=== PATIENT | male | born 1945 | race Caucasian/White ===

== ENCOUNTER 2018-07-25 16:21 | Emergency (ER) | payer OTHER ==
[2018-07-25] MEDS ORDERED: IPRATROPIUM/ALBUTEROL 3 ML NEB INH STA (16:31)
--- NOTE | 2018-07-25 16:33 | ED Physician Documentation ---
History of Present Illness - Stated complaint Stated Complaint: COUGH - History obtained from History obtained from: Patient, Family - History of Present Illness Timing: How many days ago (3) Pain level max: 5 Pain level now: 4 - Additonal information Additional information: Patient is a 73-year-old male who presents to the emergency department with coughing for the past 3 days. Starting yesterday and started to develop chest pain but only with coughing. Described as sharp and stabbing. Lasts for 1-2 seconds at a time. States that he is concerned that he is developing bronchitis. States he has had "bronchitis" for the past 3 years. Has never used an inhaler. States that he had subjective fevers at home. The pain is better with rest and worse with coughing. Review of Systems Ten Systems: 10 systems reviewed and negative Constitutional: reports: Fever. denies: Chills Ears: denies: Ear pain Nose: reports: Rhinorrhea / runny nose, Congestion Throat: denies: Sore throat Cardiac: denies: Palpitations Respiratory: reports: Dyspnea, Cough, Wheezing GI: denies: Abdominal Pain, Nausea, Vomiting, Diarrhea Skin: denies: Rash Musculoskeletal: denies: Neck pain, Back pain Neurologic: denies: Headache PD PAST MEDICAL HISTORY - Past Medical History Past Medical History: Yes Cardiovascular: Hypertension GI: GERD Musculoskeletal: Gout - Present Medications Home Medications: Ambulatory Orders Medication Instructions Recorded Confirmed Albuterol Sulf [Ventolin Hfa 1 - 2 puffs INH Q4HR PRN #1 inhaler 07/25/18 Inhaler] Benzonatate [Tessalon Perle] 100 - 200 mg PO TID PRN #30 capsule 07/25/18 predniSONE [Deltasone] 10 mg PO [id number] #42 tab 07/25/18 - Allergies Allergies/Adverse Reactions: Allergies Allergy/AdvReac Type Severity Reaction Status Date / Time No Known Drug Allergies Allergy Verified 07/25/18 16:35 - Living Situation Living Situation: reports: With family Living Arrangement: reports: At home - Social History Does the pt smoke?: No Does the pt have substance abuse?: No - Family History Family history: reports: Non contributory PD ED PE NORMAL - Vitals Vital signs reviewed: Yes - General General: Alert and oriented X 3, No acute distress - HEENT HEENT: Moist mucous membranes - Neck Neck: Supple, no meningeal sign - Cardiac Cardiac: RRR - Respiratory Respiratory: No respiratory distress, Other (wheezing B) - Abdomen Abdomen: Soft, Non tender, Non distended - Derm Derm: Warm and dry - Extremities Extremities: No edema - Neuro Neuro: Alert and oriented X 3 - Psych Psych: Normal mood, Normal affect Results - Vitals Vitals: Vital Signs - 24 hr 07/25/18 07/25/18 07/25/18 16:30 17:00 18:55 Temperature 36.7 C Heart Rate 103 H 94 111 H Respiratory 18 112 H 18 Rate Blood Pressure 162/100 H O2 Saturation 98 07/25/18 19:11 Temperature 37.8 C H Heart Rate 110 H Respiratory 18 Rate Blood Pressure 169/92 H O2 Saturation 96 Oxygen O2 Source Room air - EKG (time done) 1634 Rate: Rate (enter#) (99) Rhythm: NSR [place]: Anterior hemiblock (LAFB) Intervals: Normal VT QRS: Normal Ischemia: Normal ST segments - Rads (name of study) cxr Radiology: Prelim report reviewed, EMP read contemporaneously, See rad report ( No acute abnormality) PD MEDICAL DECISION MAKING - ED course Complexity details: reviewed results, re-evaluated patient, considered differential, d/w patient, d/w family ED course: Patient is a 73-year-old male who presents to the emergency department what appears to be a viral upper respiratory infection. He is very well-appearing, nontoxic. No acute findings on chest x-ray. Feels better after nebulizer treatment. Will place on an inhaler for home and continue supportive care. Patient counseled regarding signs and symptoms for which I believe and urgent re -evaluation would be necessary. Patient with good understanding of and agreement to plan and is comfortable going home at this time This document was made in part using voice recognition software. While efforts are made to proofread this document, sound alike and grammatical errors may occur. - Sepsis Event Vital Signs: Vital Signs - 24 hr 07/25/18 07/25/18 07/25/18 16:30 17:00 18:55 Temperature 36.7 C Heart Rate 103 H 94 111 H Respiratory 18 112 H 18 Rate Blood Pressure 162/100 H O2 Saturation 98 07/25/18 19:11 Temperature 37.8 C H Heart Rate 110 H Respiratory 18 Rate Blood Pressure 169/92 H O2 Saturation 96 Oxygen O2 Source Room air Departure - Departure Disposition: 01 Home, Self Care Clinical Impression: Upper respiratory tract infection Qualifiers: URI type: unspecified viral URI Qualified Code(s): J06.9 - Acute upper respiratory infection, unspecified Condition: Good Instructions: ED URI Viral Follow-Up: your,doctor in 1 week [Other] Prescriptions: Albuterol Sulf [Ventolin Hfa Inhaler] 1 - 2 puffs INH Q4HR PRN #1 inhaler PRN Reason: Shortness Of Air/Wheezing Benzonatate [Tessalon Perle] 100 - 200 mg PO TID PRN #30 capsule PRN Reason: Cough predniSONE [Deltasone] 10 mg PO [id number] #42 tab Comments: Your xray does not show any signs of pneumonia. you do not need antibiotics at this time. This will last approximately 2-3 weeks. Return if you worsen. Discharge Date/Time: 07/25/18 19:13
--- NOTE | 2018-07-25 18:06 | XRAY Report ---
Reason: cough, chest pain Procedure Date: 07/25/2018 Accession Number: [id number] / [id number] Procedure: XR - Chest 2 View X-Ray CPT Code: 07306 FULL RESULT: EXAM: CHEST RADIOGRAPHY EXAM DATE: 07/25/2018 05:42 PM. CLINICAL HISTORY: Cough, chest pain. COMPARISON: None. TECHNIQUE: 2 views. FINDINGS: Lungs/Pleura: No focal opacities evident. No pleural effusion. No pneumothorax. Normal volumes. Mediastinum: Normal heart size. There is mild thoracic aortic tortuosity. Other: None. IMPRESSION: No acute intrathoracic plain film abnormality. [facility]
[2018-07-25] MEDS ORDERED: ALBUTEROL NEB 2.5 MG/3 ML INH STA (18:25)
[2018-07-25] MEDS ORDERED: predniSONE 20 MG TABLET PO STA (18:25)
[2018-07-25] MEDS ORDERED: BENZONATATE 100 MG CAPSULE PO STA (18:25)
[2018-07-25] MEDS ORDERED: MELOXICAM 7.5 MG TABLET PO STA (18:26)
[2018-07-25 19:13] VITALS: BP 169/92
== END 2018-07-25 19:13 | disposition home or self-care (01) ==
LOC: ED 16:21
DX: J06.9 Acute upper respiratory infection, unspecified (principal); I44.4 Left anterior fascicular block; I10 Essential (primary) hypertension
CPT/HCPCS: 71046; 93005; 94640; 99283; A9270; J7512